=== PATIENT | female | born 1940 | race Caucasian/White ===

== ENCOUNTER 2020-09-08 10:24 | Emergency (ER) | payer MEDICARE ==
[~2020-09-08 10:24] MED LIST: ASPIRIN CHEWABL81 MG PO; BACTRIM DS TAB1 EACH PO; HYDROCHLOROTHIA25 MG PO; TYLENOL 325MG325 MG PO; ZESTRIL40 MG PO; ZOCOR20 MG PO
== END 2020-09-08 13:25 | disposition home or self-care (01) ==
LOC: ER1 10:24
DX: S00.83XA Contusion of other part of head, initial encounter (principal); S70.02XA Contusion of left hip, initial encounter; S60.512A Abrasion of left hand, initial encounter; R91.8 Other nonspecific abnormal finding of lung field; I10 Essential (primary) hypertension; E78.5 Hyperlipidemia, unspecified; Z23 Encounter for immunization; W22.8XXA Striking against or struck by other objects, initial encounter
CPT/HCPCS: 70450; 72125; 73502; 90471; 90715; 99284

== ENCOUNTER → 2020-12-14 | Outpatient (CLI) | payer MEDICARE | LOC: RAD 10:44 | DX: M17.0 Bilateral primary osteoarthritis of knee (principal); S83.142A Lateral subluxation of proximal end of tibia, left knee, initial encounter; S83.141A Lateral subluxation of proximal end of tibia, right knee, initial encounter | CPT/HCPCS: 73562 ==

== ENCOUNTER 2021-03-09 07:41 | Observation (INO) | payer MEDICARE ==
[~2021-03-09] VITALS: Ht 152.4 cm; Wt 74.8 kg
[2021-03-09 08:18] LABS: HEMOGLOBIN 13.1 gm/dl (12.3-15.3); RED BLOOD COUNT 4.65 M/UL (4.00-5.10); WHITE BLOOD COUNT 5.2 K/UL (4.5-11.0)
[2021-03-09 08:39] LABS: BUN/CREATININE RATIO 25 (0-10)
[2021-03-09] MEDS ORDERED: ZESTRIL 40 MG T40 MG PO (08:54)
[2021-03-09] MEDS ORDERED: MOBIC7.5 MG PO (08:55)
[2021-03-09] MEDS ORDERED: ZINC50 M2 PO (09:24)
[2021-03-09] MEDS ORDERED: VITAMIN C500 M4 PO (09:24)
[2021-03-09] MEDS ORDERED: VITAMIN D325 MCG PO (09:24)
[2021-03-10 03:54] LABS: HEMOGLOBIN 12.2 gm/dl (12.3-15.3); RED BLOOD COUNT 4.49 M/UL (4.00-5.10); WHITE BLOOD COUNT 4.8 K/UL (4.5-11.0)
[2021-03-10 04:11] LABS: BUN/CREATININE RATIO 22 (0-10)
[2021-03-10] MEDS ORDERED: ATORVASTATIN CA20 MG PO (09:50)
[2021-03-10] MEDS ORDERED: HYDROCHLOROTHIA25 MG PO (09:50)
== END 2021-03-10 12:32 | disposition home or self-care (01) ==
LOC: ER1 07:41 → M/S 17:10 → CDU 17:10 → M/S 17:16
PROVIDERS: Emergency Medicine; Physician Assistant Medical; ADMIT Internal Medicine
DX: R20.0 Anesthesia of skin (principal); R29.810 Facial weakness; I10 Essential (primary) hypertension; E78.5 Hyperlipidemia, unspecified; Z79.82 Long term (current) use of aspirin; Z79.899 Other long term (current) drug therapy; Z20.822 Contact with and (suspected) exposure to COVID-19
CPT/HCPCS: ECHO; 36415; 70450; 70496; 70498; 70551; 71045; 80048; 80053; 80061; 82550; 82553; 83735; 83874; 84484; 85025; 85027; 85610; 85730; 93005; 93270; 93306; G0378; J0360; Q9967; U0002

== ENCOUNTER 2021-05-24 13:59 | Inpatient (IN) | payer MEDICARE ==
[~2021-05-24] VITALS: Ht 152.4 cm; Wt 72.7 kg
[~2021-05-24 13:59] MED LIST changes: +ATORVASTATIN CA20 MG PO; +MOBIC7.5 MG PO; +VITAMIN C500 M4 PO; +VITAMIN D325 MCG PO; +ZESTRIL 40 MG T40 MG PO; +ZINC50 M2 PO
[2021-05-24 14:51] LABS: HEMOGLOBIN 13.4 gm/dl (12.3-15.3); RED BLOOD COUNT 4.82 M/UL (4.00-5.10); WHITE BLOOD COUNT 5.7 K/UL (4.5-11.0)
[2021-05-24] MEDS ORDERED: ZOLOFT25 MG PO (22:56)
[2021-05-25 02:50] LABS: HEMOGLOBIN 11.8 gm/dl (12.3-15.3)
[2021-05-25 03:01] LABS: RED BLOOD COUNT 4.26 M/UL (4.00-5.10); WHITE BLOOD COUNT 4.1 K/UL (4.5-11.0)
[2021-05-25] MEDS ORDERED: MOBIC7.5 MG PO (09:10)
[2021-05-25] MEDS ORDERED: ZOCOR20 MG PO (09:10)
[2021-05-25] MEDS ORDERED: VOLTAREN ARTHRI20 GM TOP (10:19)
[2021-05-26 07:18] LABS: HEMOGLOBIN 11.6 gm/dl (12.3-15.3); RED BLOOD COUNT 4.27 M/UL (4.00-5.10); WHITE BLOOD COUNT 4.3 K/UL (4.5-11.0)
--- NOTE | 2021-05-26 12:47 | NUR ---
PATIENTS POTASSIUM LAB CAME BACK 3.4. NOTIFIED DR. MART, HE ORDERED TO GIVE 40 MEQ PO PER PROTOCOL. WILL CONTINUE TO MONITOR PATIENT.
[2021-05-27 07:49] LABS: HEMOGLOBIN 10.2 gm/dl (12.3-15.3); WHITE BLOOD COUNT 3.5 K/UL (4.5-11.0)
[2021-05-27 07:56] LABS: RED BLOOD COUNT 3.77 M/UL (4.00-5.10)
[2021-05-28 04:38] LABS: ADENOVIRUS F 40/41 Not Detected (Negative); ASTROVIRUS Not Detected (Negative); CAMPYLOBACTER Not Detected (Negative); CLOSTRIDIUM DIFFICILE TOX A/B Not Detected (Negative); CRYPTOSPORIDIUM Not Detected (Negative); E.COLI 0157 Not Detected (Negative); ENTAMOEBA HISTOLYTICA Not Detected (Negative); ENTEROAGGREGATIVE E.COLI (EAEC Not Detected (Negative); ENTEROPATHOGENIC E.COLI (EPEC) Not Detected (Negative); ENTEROTOXIGENIC E.COLI (ETEC) Not Detected (Negative); GIARDIA LAMBLIA Not Detected (Negative); NOROVIRUS GI/GII Not Detected (Negative); PLESIOMONAS SHIGELLOIDES Not Detected (Negative); ROTOVIRUS A Not Detected (Negative); SALMONELLA Not Detected (Negative); SAPOVIRUS Not Detected (Negative); SHIG/ENTEROINVAS.ECOLI (EIEC) Not Detected (Negative); SHIGA-LIK TOX.PRO.E.COLI (STEC Not Detected (Negative); VIBRIO Not Detected (Negative); VIBRIO CHOLERAE Not Detected (Negative); YERSINIA ENTEROCOLITICA Not Detected (Negative)
[2021-05-28 06:38] LABS: HEMOGLOBIN 10.6 gm/dl (12.3-15.3); RED BLOOD COUNT 3.92 M/UL (4.00-5.10); WHITE BLOOD COUNT 3.6 K/UL (4.5-11.0)
[2021-05-29 07:46] LABS: HEMOGLOBIN 10.4 gm/dl (12.3-15.3); RED BLOOD COUNT 3.88 M/UL (4.00-5.10); WHITE BLOOD COUNT 3.6 K/UL (4.5-11.0)
[2021-05-30 14:55] LABS: HEMOGLOBIN 10.4 gm/dl (12.3-15.3); RED BLOOD COUNT 3.75 M/UL (4.00-5.10)
[2021-05-30 15:00] LABS: WHITE BLOOD COUNT 5.2 K/UL (4.5-11.0)
[2021-05-31 06:11] LABS: HEMOGLOBIN 10.3 gm/dl (12.3-15.3); RED BLOOD COUNT 3.74 M/UL (4.00-5.10)
[2021-05-31 06:20] LABS: WHITE BLOOD COUNT 6.7 K/UL (4.5-11.0)
[2021-05-31 06:57] LABS: BUN/CREATININE RATIO 18 (0-10)
[2021-06-01 07:39] LABS: HEMOGLOBIN 9.2 gm/dl (12.3-15.3); RED BLOOD COUNT 3.43 M/UL (4.00-5.10)
[2021-06-01 07:59] LABS: BUN/CREATININE RATIO 19 (0-10)
[2021-06-01] MEDS ORDERED: ATORVASTATIN CA20 MG PO (12:12)
[2021-06-01] MEDS ORDERED: ELIQUIS 5 MG TAB5 MG PO (12:12)
[2021-06-01] MEDS ORDERED: LOPRESSOR 25 MG25 MG PO (12:12)
[2021-06-01] MEDS ORDERED: MEGACE 400400 MG/10 PO (12:12)
== END 2021-06-01 14:07 | DRG 682 ==
LOC: ER1 13:59 → 3 EAST 17:44 → M/S 17:44 → CDU 17:44 → 3 EAST 23:24 → M/S 05-25 19:53
PROVIDERS: Internal Medicine; Physician Assistant; ADMIT Internal Medicine
PROC: B24BZZZ Ultrasonography of Heart with Aorta (ICD-10-PCS; principal; 2021-05-30)
DX: N17.9 Acute kidney failure, unspecified (principal); I63.89 Other cerebral infarction; E87.1 Hypo-osmolality and hyponatremia; N30.00 Acute cystitis without hematuria; E44.0 Moderate protein-calorie malnutrition; Z20.822 Contact with and (suspected) exposure to COVID-19; I95.9 Hypotension, unspecified; E86.0 Dehydration; R63.4 Abnormal weight loss; R74.01 Elevation of levels of liver transaminase levels; W01.0XXA Fall on same level from slipping, tripping and stumbling without subsequent striking against object, initial encounter; E78.5 Hyperlipidemia, unspecified; R19.7 Diarrhea, unspecified; B96.20 Unspecified Escherichia coli [E. coli] as the cause of diseases classified elsewhere; E87.6 Hypokalemia; R53.81 Other malaise; R47.81 Slurred speech; T50.2X5A Adverse effect of carbonic-anhydrase inhibitors, benzothiadiazides and other diuretics, initial encounter; Z79.82 Long term (current) use of aspirin; Z79.899 Other long term (current) drug therapy; Z86.73 Personal history of transient ischemic attack (TIA), and cerebral infarction without residual deficits; Z82.49 Family history of ischemic heart disease and other diseases of the circulatory system; Z98.49 Cataract extraction status, unspecified eye; Z79.01 Long term (current) use of anticoagulants; Z68.31 Body mass index [BMI] 31.0-31.9, adult
CPT/HCPCS: ECHO; 36415; 70450; 70551; 71045; 72128; 80048; 80053; 81001; 82436; 82533; 82607; 83036; 83735; 83935; 84100; 84132; 84133; 84295; 84300; 84439; 84443; 84550; 85025; 85027; 87077; 87086; 87186; 87507; 89050; 93005; 93306; 93880; 96372; 97110; 97116; 97116-GP-CQ; 97162; 97166; 97530; 99284; J0696; J1650; J2543; J3475; U0002

== ENCOUNTER 2021-07-06 12:50 | Emergency (ER) | payer MEDICARE ==
[~2021-07-06 12:50] MED LIST changes: +ELIQUIS 5 MG TAB5 MG PO; +LOPRESSOR 25 MG25 MG PO; +MEGACE 400400 MG/10 PO; +VOLTAREN ARTHRI20 GM TOP; +ZOLOFT25 MG PO
[2021-07-06 14:42] LABS: HEMOGLOBIN 10.7 gm/dl (12.3-15.3); RED BLOOD COUNT 3.86 M/UL (4.00-5.10)
== END 2021-07-06 19:10 | disposition home or self-care (01) ==
LOC: ER1 12:50
PROVIDERS: Emergency Medicine
DX: U07.1 COVID-19 (principal); S80.12XA Contusion of left lower leg, initial encounter; I10 Essential (primary) hypertension; Z86.73 Personal history of transient ischemic attack (TIA), and cerebral infarction without residual deficits; I48.91 Unspecified atrial fibrillation; X58.XXXA Exposure to other specified factors, initial encounter
CPT/HCPCS: 36600; 71045; 73590; 80053; 82550; 82553; 82803; 83605; 83880; 84484; 85025; 87040; 93005; 93971; 99285; M0247; U0002